=== PATIENT | male | born 1955 | race Caucasian/White ===

== ENCOUNTER → 2019-02-10 | Day surgery (SDC) | payer BC ==
[~2019-02-10] MED LIST: ASPI-630 PO; BISO1TAB7 PO; CYCL10TA2 PO; DIPH25CA58 PO; IV RINGERS,LACTATED 1000ML 1,000 ML IV SCH; LIDOCAINE 2% PF 5 ML VIAL. ONE; LOVA40TA2 PO; MELO15TA23 PO; NIFE60TA16 PO; OLOP5DRO EACHEYE; OMEG1CAP6 PO; PROPOFOL 40 ML IV ONE; QUIN40TA16 PO; TRAM50TA PO
[2019-02-10 13:40] VITALS: BP 114/66
--- NOTE | 2019-02-13 11:08 | PATHOLOGY ---
[facility] Accession Number: [id number] . 01 Material submitted: . colon - POLYP AT 40CM . 01 Clinical history: . History of polyps. . 02 Diagnosis: Colonic mucosa "#1 polyp at 40 cm": - Tubular adenoma. - There is no evidence of high-grade dysplasia or malignancy. (SHA:[facility]; 02/13/2019) QMS/02/13/2019 . 02 Electronically signed: . Jt Robbins MD, Pathologist NPI- [id number] . 01 Gross description: . Received in formalin labeled "Jitendra Dey, polyp at 40 cm" is a 0.3 x 0.2 x 0.2 cm fragment of ocampo-brown mucosa. The specimen is submitted in A1. ([facility] [place]; 02/12/2019) SYC/SYC . 02 Pathologist provided ICD-10: D12.6 . 02 CPT . 621249 Specimen Comment: A courtesy copy of this report has been sent to Specimen Comment: [phone], . Specimen Comment: Report sent to / DR CAMPOS Specimen Comment: A duplicate report has been generated due to demographic updates. Performed at: 01 [facility] [address], [place] [id number] MD Noble Grant MD Phone: [phone] Performed at: 02 [facility] [address] [place], [place] [id number] MD Jose Allison MD Phone: [phone]
== END ==
LOC: ENDOS 12:05
PROVIDERS: ATTEND Surgery
DX: Z12.11 Encounter for screening for malignant neoplasm of colon (principal); D12.4 Benign neoplasm of descending colon; I10 Essential (primary) hypertension; E78.00 Pure hypercholesterolemia, unspecified; G89.29 Other chronic pain; Z87.891 Personal history of nicotine dependence; Z86.010 Personal history of colon polyps; Z72.89 Other problems related to lifestyle; J30.9 Allergic rhinitis, unspecified; Z79.899 Other long term (current) drug therapy; Z98.890 Other specified postprocedural states
CPT/HCPCS: 45380; 88305; J2001; J2704